=== PATIENT | female | born 1960 | race Two or more races ===

== ENCOUNTER 2025-04-11 23:07 | Emergency (ER) | payer MEDICARE, OTHER ==
[~2025-04-11] VITALS: Ht 170.2 cm; Wt 80.5 kg
--- NOTE | 2025-04-11 23:59 | DVH ---
EXAM: CT HEAD WITHOUT CONTRAST INDICATION: severe headache TECHNIQUE: CT of the head without intravenous contrast. Radiation Dose : 1. Head: CT Dose: CTDI volume is 59.18 mGy. Dose-length product is 1166.12 mGy*cm The dose indicators for CT are the volume Computed Tomography (CT) Dose Index (CTDIvol) and the Dose Length Product (DLP), and are measured in units of mGy and mGy-cm, respectively. These indicators are not patient dose, but values generated from the CT scanner acquisition factors. The report includes radiation exposure data for exposures received during this examination. COMPARISON: None FINDINGS: Motion artifact degrades fine detail. No acute territorial infarct, intracranial hemorrhage, or mass effect. There are global involutional changes with compensatory prominence of the ventricles and sulci. Patchy periventricular and subcortical white matter hypoattenuation is nonspecific but may be related to small vessel ischemic disease. The orbits are normal. Mucosal thickening and calcification within the right maxillary antrum. Tiny polyp versus retention cyst within the left maxillary antrum. The osseous structures are unremarkable. IMPRESSION: 1. No acute territorial infarct, intracranial hemorrhage, or mass effect. 2. Age-related involutional changes. Chronic microvascular changes. 3. If clinical symptoms persist, MRI may be beneficial in further evaluation. Radiation optimization: All CT scans at this facility use at least one of these dose optimization techniques: automated exposure control mA and/or kV adjustment per patient size (includes targeted exams where dose is matched to clinical indication) or iterative reconstruction.
--- NOTE | 2025-04-12 00:01 | ED.PDOC ---
History of Present Illness HPI Comments 64 y/o F presents with c/c of left eye pain x1 week. Patient reports on onset of pain after, accidentally, mistaking ear drops for eye drops and using it on her left eye. Patient has been evaluated several times for pain with no pertinent findings before being discharge. Denies any further acute symptoms. Chief Complaint: Eye Problem Time Seen by MD: 23:45 Reviewed Notes: Nurses Notes, Medications, Allergies Allergies: Coded Allergies: NO KNOWN ALLERGIES (Unverified , 04/11/25) Home Meds Active Scripts Gabapentin (Once-Daily) (Gabapentin) 300 Mg Tab, 300 MG PO Q6HP PRN, #60 TAB Prov:ALYSHA FARAH MD 04/12/25 Gabapentin (Once-Daily) (Gabapentin) 300 Mg Tab, 300 MG PO Q6HP PRN, #30 TAB Prov:ALYSHA FARAH MD 04/12/25 Information Source: Patient Mode of Arrival: Ambulatory Severity: Moderate Timing: Days Duration: Since onset Prehospital treatment: None Past Medical History PAST MEDICAL HISTORY: Denies Surgical History: Denies all surgeries 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 History: 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 all 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 Hx Social History Smoker: Non-Smoker Alcohol: Denies ETOH Use Drugs: Denies Drug Use Lives In: Home All Other Systems: Reviewed and Negative (As per HPI) Physical Exam General Appearance: Mild Distress, Normal HEENT: Pharynx Normal, TMs Normal, Other (mild clear discharge from left eye ) Neck: Full Range of Motion, Non-Tender, Normal, Normal Inspection Respiratory: Chest Non-Tender, Lungs Clear, No Accessory Muscle Use, No Respiratory Distress, Normal Breath Sounds Cardiovascular: No Edema, No JVD, No Murmur, No Gallop, Normal Peripheral Pulses, Regular Rate/Rhythm Breast Exam: Deferred Gastrointestinal: No Organomegaly, Non Tender, No Pulsatile Mass, Normal Bowel Sounds, Soft Genitalia: Deferred Pelvic: Deferred Rectal: Deferred Extremities: No calf tenderness, Normal capillary refill, Normal inspection, Normal range of motion, Non-tender, No pedal edema Musculoskeletal : Apperance: Normal Neurologic: Alert, campaign associate II-XII nml as Tested, No Motor Deficits, Normal Affect, Normal Mood, No Sensory Deficits Cerebellar Function: Normal Reflexes: Normal Skin: Dry, Normal Color, Warm Lymphatic: No Adenopathy Was a procedure done? Was a procedure done?: No Differential Dx Considerations may include: conjunctivitis, conjunctival hemorrhaging, foreign body, among others X-Ray, Labs, Meds, VS Vital Signs Date Time Temp Pulse Resp B/P (MAP) Pulse Ox O2 Delivery O2 Flow Rate FiO2 04/12/25 01:10 Room Air* 0 21 04/12/25 01:08 98.1 110 20 134/71 (92) 99 98.1 04/11/25 23:15 95.1 87 16 147/78 97 95.1 Current Medications Medications (Trade) Dose Ordered Sig/Guera Route Start Time Stop Time Status Last Admin Acetaminophen/ Hydrocodone Bitart ([place] 10/325MG Tab) 1 tab ONCE ONCE PO 04/12/25 00:15 04/12/25 00:16 DC 04/12/25 01:15 Time of 1ST Reevaluation: 00:15 Reevaluation 1ST: Unchanged Patient Education/Counseling: Diagnosis, Treatment Family Education/Counseling: No Family Present SEPSIS Sepsis Screen Date sepsis recognized/suspect: Apr 11, 2025 Time Sepsis recognized/suspect: 2325 Recent Procedure: No On Antibiotic Therapy: No Respiratory Rate >20: No Heart Rate >90: No Temp<36 C (96.8 F) or >38.3 C: No SBP <90 or MAP <65 mmHG: No New Acute Mental Status Change: No Is the patient on CPAP, BIPAP,: No Physician Orders Head Without Contrast (04/11/25 23:29) Vital Signs Date Time Temp Pulse Resp B/P (MAP) Pulse Ox O2 Delivery O2 Flow Rate FiO2 04/12/25 01:10 Room Air* 0 21 04/12/25 01:08 98.1 110 20 134/71 (92) 99 98.1 04/11/25 23:15 95.1 87 16 147/78 97 95.1 Medications Medications Dose Ordered Sig/Guera Route Start Time Stop Time Status Last Admin Dose Admin Acetaminophen/ Hydrocodone Bitart 1 tab ONCE ONCE PO 04/12/25 00:15 04/12/25 00:16 DC 04/12/25 01:15 Departure 1 Departure Time of Disposition: 02:00 Impression: Primary Impression: Headache Disposition: 01 HOME / SELF CARE / HOMELESS Condition: Stable e-Prescriptions Gabapentin (Once-Daily) (Gabapentin) 300 Mg Tab 300 MG PO Q6HP PRN, #60 TAB Prov: ALYSHA FARAH MD 04/12/25 Gabapentin (Once-Daily) (Gabapentin) 300 Mg Tab 300 MG PO Q6HP PRN, #30 TAB Prov: ALYSHA FARAH MD 04/12/25 Discharged With: Self Critical Care Note Critical Care Time?: No Stability Stability form required: No Heart Score Heart Score: Heart Score Response (Comments) Value History N/A 0 EKG N/A 0 Age N/A 0 Risk Factors N/A 0 Troponin N/A 0 Total 0 I personally scribed for ALYSHA FARAH MD ([email or web address]) on 04/12/25 at 00:01. Electronically submitted by Rico Doran ([email or web address]). ALYSHA FARAH MD Apr 12, 2025 00:01
[2025-04-12] MEDS ORDERED: GABA300T4 PO (00:12)
[2025-04-12 01:08] VITALS: BP 134/71; PULSE 110; RESP 20; TEMP 98.1; O2SAT 99
[2025-04-12] MEDS: HYDROcodone-ACET 10/325MG TAB PO ONE (01:15)
== END 2025-04-12 01:16 | disposition home or self-care (01) ==
LOC: ER 23:07
DX: H57.12 Ocular pain, left eye (principal); R51.9 Headache, unspecified
CPT/HCPCS: 70450

== ENCOUNTER 2025-04-16 10:02 | Emergency (ER) | payer MEDICARE ==
[~2025-04-16] VITALS: Ht 170.2 cm; Wt 79.9 kg
[~2025-04-16 10:02] MED LIST: GABA300T4 PO
--- NOTE | 2025-04-16 12:00 | ED.PDOC ---
Eye-HPI HPI Comments The patient presents for evaluation of ongoing headache. Two weeks before this visit, the patient experienced left eye pain for one week after mistakenly using ear drops in the eye. The patient reports that after the initial symptoms, they developed vertigo, which resolved, but subsequently experienced a burning sensation that started in the brain and traveled, resulting in a brief blackout episode lasting a couple of seconds, followed by screaming. The headache has been persistent for two weeks. The patient also describes a sensation of pressure in the eye and ear. The patient took some medication (unclear which) for symptoms.No information provided regarding family history, allergies, current medications, or social history. Chief Complaint: Eye Problem Time Seen by MD: 10:08 Reviewed Notes: Nurses Notes, Medications, Allergies Allergies: Coded Allergies: NO KNOWN ALLERGIES (Unverified , 04/11/25) Home Meds Active Scripts Gabapentin (Gabapentin) 100 Mg Cap, 1 CAP PO TID for 30 Days, #90 CAP 0 Refills Prov:LES SIMS NP 04/16/25 Gabapentin (Once-Daily) (Gabapentin) 300 Mg Tab, 300 MG PO Q6HP PRN, #60 TAB Prov:ALYSHA FARAH MD 04/12/25 Gabapentin (Once-Daily) (Gabapentin) 300 Mg Tab, 300 MG PO Q6HP PRN, #30 TAB Prov:ALYSHA FARAH MD 04/12/25 Information Source: Patient Mode of Arrival: Ambulatory Timing: Weeks Duration: Since onset Prehospital treatment: None Quality: Pain Lids: Normal Conjunctiva: Normal Cornea: Normal Pupils: Normal EOM: Normal Fundus: Normal Slit lamp exam: Normal Anterior chamber: Normal Mouth: Normal ENT Ear Exam: Normal Nose: Normal Sinuses: Normal Oropharynx: Normal Onset: Spontaneous Throat Exposed to: None History of: None Associated signs and symptoms: None Past Medical History PAST MEDICAL HISTORY: Denies Surgical History: Denies all surgeries WEAVING INSTRUCTOR History: Denies all WEAVING INSTRUCTOR Hx Family History Family History: Reviewed,noncontributory to illness, Unknown Social History Smoker: Non-Smoker Alcohol: Denies ETOH Use Drugs: Denies Drug Use Lives In: Home Constitutional: denies: chills, diaphoresis, fatigue, fever, malaise, sweats, weakness, others EENTM: reports: eye pain; denies: blurred vision, double vision, ear bleeding, ear discharge, ear drainage, ear pain, ear ringing, eye redness, hearing loss, mouth pain, mouth swelling, nasal discharge, nose bleeding, nose congestion, nose pain, photophobia, tearing, throat pain, throat swelling, voice changes, others Respiratory: denies: cough, hemoptysis, orthopnea, SOB at rest, shortness of breath, SOB with excertion, stridor, wheezing, others Cardiovascular: denies: chest pain, dizzy spells, diaphoresis, Dyspnea on exertion, edema, irregular heart beat, left arm pain, lightheadedness, palpitations, PND, syncope, others Gastrointestinal: denies: abdomen distended, abdominal pain, blood streaked bowels, constipated, diarrhea, dysphagia, difficulty swallowing, hematemesis, melena, nausea, poor appetite, poor fluid intake, rectal bleeding, rectal pain, vomiting, others Genitourinary: denies: abnormal vagina bleeding, burning, dyspareunia, dysuria, flank pain, frequency, hematuria, incontinence, pain, , vagina discharge, urgency, others Neurological: reports: headache; denies: dizziness, fainting, left sided numbness, left sided weakness, numbness, paresthesia, pre-existing deficit, right sided numbness, right sided weakness, seizure, speech problems, tingling, tremors, weakness, others Musculoskeletal: denies: back pain, gout, joint pain, joint swelling, muscle pain, muscle stiffness, neck pain, others Integumetry: denies: bruises, change in color, change in hair/nails, dryness, laceration, lesions, lumps, rash, wounds, others Allergic/Immunocompromised: denies: Difficulty Healing, Frequent Infections, Hives, Itching, others Hematologic/Lymphatic: denies: anemia, blood clots, easy bleeding, easy bruising, swollen glands, others Endocrine: denies: excessive hunger, excessive sweating, excessive thirst, excessive urination, flushing, intolerance to cold, intolerance to heat, unexplained weight gain, unexplained weight loss, others Psychiatric: denies: anxiety, bipolar disorder, depression, hopeless, panic disorder, schizophrenia, sleepless, suicidal, others All Other Systems: Reviewed and Negative Physical Exam Exam Comments Chronic headache for the past two weeks, the patient denies having erythema in his to the periorbital region of the eye or tenderness, erythema, crusting or swelling to the eyelids and tenderness to the eyeballs. General Appearance: No Apparent Distress, Normal HEENT: Normal ENT Inspection, Pharynx Normal, TMs Normal Neck: Full Range of Motion, Non-Tender, Normal, Normal Inspection Respiratory: Chest Non-Tender, Lungs Clear, No Accessory Muscle Use, No Respiratory Distress, Normal Breath Sounds Cardiovascular: No Edema, No JVD, No Murmur, No Gallop, Normal Peripheral Pulses, Regular Rate/Rhythm Breast Exam: Deferred Gastrointestinal: No Organomegaly, Non Tender, No Pulsatile Mass, Normal Bowel Sounds, Soft Genitalia: Deferred Pelvic: Deferred Rectal: Deferred Extremities: No calf tenderness, Normal capillary refill, Normal inspection, Normal range of motion, Non-tender, No pedal edema Musculoskeletal : Apperance: Normal Neurologic: Alert, data officer II-XII nml as Tested, No Motor Deficits, Normal Affect, Normal Mood, No Sensory Deficits Cerebellar Function: Normal Reflexes: Normal Skin: Dry, Normal Color, Warm Lymphatic: No Adenopathy Was a procedure done? Was a procedure done?: No EENT DIFF Eye: Other X-Ray, Labs, Meds, VS Vital Signs Date Time Temp Pulse Resp B/P (MAP) Pulse Ox O2 Delivery O2 Flow Rate FiO2 04/16/25 12:14 77 16 100 Room Air 04/16/25 12:14 97.9 77 16 118/95 (103) 100 97.9 04/16/25 10:04 97.6 83 15 115/97 100 97.6 Current Medications Medications (Trade) Dose Ordered Sig/Guera Route Start Time Stop Time Status Last Admin Acetaminophen/ Hydrocodone Bitart ([place] 5/325MG Tab) 1 tab ONCE ONCE PO 04/16/25 12:00 04/16/25 12:01 DC 04/16/25 12:12 X-Ray, Labs, Meds, VS Comment The patient has a persistent headache for two weeks, associated with a brief blackout, burning sensation, and pressure in the eye and ear. The prior episode of vertigo and history of accidental ear drop exposure are noted. There is no evidence of current vision loss, focal neurological deficit, or fever provided. The etiology remains unclear, and further evaluation may be warranted in out patient setting. - Provided a single dose of pain medication in office. - Advised to follow up with primary care provider and joint cutter for further evaluation and ongoing management. Patient is stable for discharge at this time. External notes reviewed. Test results and diagnostic imaging interpreted. All diagnostic findings, discharge care, education and instructions provided Follow-up with PCP in 2 to 3 days Patient verbalized understanding and agreed to treatment plan Vital signs stable, afebrile, no acute distress noted Patient ambulatory with strong steady gait Advised to return precautions for any new or worsening symptoms, return to ER immediately for re-evaluation Patient is aware that the purpose of this visit was for an acute medical emergency requiring emergent stabilization. Chronic conditions, including malignancies have not been ruled out. Patient is instructed to follow up with PCP as directed and discharge instructions for continued care and workup. If unable to arrange follow-up, patient is to return to the emergency department for reassessment. Patient (parent or legal guardian if applicable) was given verbal and written discharge instructions and acknowledges understanding. Additional MDM Review of External, Non-ED records: External records reviewed. Discussion with independent historian (EMS, family) history obtained from the patient/parents (if applicable) at bedside Chronic conditions affecting care: None Social determinants of health affecting care: None Consideration of admission (observation or admission): I considered escalation of care to admission for this patient, however given the reassuring workup, the patient is safe for outpatient management. Discussion with the Radiology: No Tests considered but not performed: Prescription medication considered but not given: Time of 1ST Reevaluation: 10:38 Reevaluation 1ST: Unchanged Patient Education/Counseling: Diagnosis, Treatment, Prognosis Family Education/Counseling: No Family Present SEPSIS Sepsis Screen Date sepsis recognized/suspect: Apr 16, 2025 Time Sepsis recognized/suspect: 1006 Recent Procedure: No On Antibiotic Therapy: No Respiratory Rate >20: No Heart Rate >90: No Temp<36 C (96.8 F) or >38.3 C: No SBP <90 or MAP <65 mmHG: No New Acute Mental Status Change: No Is the patient on CPAP, BIPAP,: No Vital Signs Date Time Temp Pulse Resp B/P (MAP) Pulse Ox O2 Delivery O2 Flow Rate FiO2 04/16/25 12:14 77 16 100 Room Air 04/16/25 12:14 97.9 77 16 118/95 (103) 100 97.9 04/16/25 10:04 97.6 83 15 115/97 100 97.6 Departure 1 Departure Time of Disposition: 11:59 Impression: Primary Impression: Left eye pain Disposition: HOME / SELF CARE / HOMELESS Condition: Stable e-Prescriptions Gabapentin (Gabapentin) 100 Mg Cap 1 CAP PO TID for 30 Days, #90 CAP 0 Refills Prov: LES SIMS NP 04/16/25 Critical Care Note Critical Care Time?: No Stability Stability form required: No I personally scribed for LES SIMS GLOBAL COMPENSATION MANAGER ([email or web address]) on 04/16/25 at 12:23. Electronically submitted by Lex Gasca ([employer]). I personally scribed for LES SIMS NP ([email or web address]) on 04/16/25 at 13:02. Electronically submitted by Lex Gasca ([employer]). LES SIMS NP Apr 16, 2025 12:00
[2025-04-16] MEDS: HYDROcodone-ACET 5/325MG TAB PO ONE (12:12)
[2025-04-16 12:14] VITALS: BP 118/95; PULSE 77; RESP 16; TEMP 97.9; O2SAT 100
[2025-04-16] MEDS ORDERED: GABA-1308 PO (12:24)
== END 2025-04-16 12:36 | disposition home or self-care (01) ==
LOC: ER 10:02
DX: H57.12 Ocular pain, left eye (principal); Z79.899 Other long term (current) drug therapy